=== PATIENT | male | born 1945 | race American Indian/Alaskan Native ===

== ENCOUNTER 2018-10-11 10:28 | Outpatient (CLI) | payer MEDICARE ==
[2018-10-11 11:10] LABS: Blood Urea Nitrogen 12 mg/dL (9-20)
--- NOTE | 2018-10-11 19:55 | Cat Scan Report ---
PROCEDURE: CT ABDOMEN PELVIS WO/W CON HISTORY: SEVERE ABD PAIN FINDINGS: Unenhanced CT of the abdomen and pelvis was performed followed by contrast-enhanced CT of t he abdomen and pelvis obtained following the intravenous administration of iodinated contrast. Delaye d phase excretory images were also generated. There is cardiomegaly. There is a trace pericardial effusion. There is gynecomastia. There is wall thickening of the distal esophagus consistent with esophagitis. There is a small hiatal hernia. ABDOMEN: There is enlargement of the lateral segment left lobe of liver and of the caudate lobe with atrophy o f the right lobe of liver consistent with cirrhotic change. The spleen is normal in size. The adrenal glands and pancreas are within normal limits. The gallbladder is mildly distended but is otherwise unremarkable. There is no renal or ureteral calculus. There are left renal cysts. Both kidneys excrete contrast nor liseth. The adrenal glands are within normal limits. There is aortic atherosclerotic change without aneurysma l dilation of the aorta. There is a short-segment dissection in the infrarenal abdominal aorta, axial image 130, sagittal image 96 extending for 1.1 cm along the long axis of the vessel. There is no small or large bowel obstruction. Pelvis: There is acute diverticulitis of the proximal sigmoid colon perienteric stranding. There is no divert icular abscess. There is a normal appendix. The prostate appears mildly large. The urinary bladder is within normal limits. 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 This document is electronically signed by Andrea Fry MD., October 11 2018 07:53:05 PM ET
== END 2018-10-11 10:29 | disposition home or self-care (01) ==
LOC: CT 10:28
PROVIDERS: ATTEND Internal Medicine
DX: K57.92 Diverticulitis of intestine, part unspecified, without perforation or abscess without bleeding (principal); N28.1 Cyst of kidney, acquired; I10 Essential (primary) hypertension; K21.9 Gastro-esophageal reflux disease without esophagitis; E03.9 Hypothyroidism, unspecified
CPT/HCPCS: 36415; 74178; 82565; 84520; Q9967

== ENCOUNTER 2019-01-07 10:54 | Day surgery (SDC) | payer MEDICARE ==
[2019-01-07] MEDS ORDERED: NACL 0.9% 500 ML 500 ML IV SCH (12:00)
[2019-01-07 12:03] LABS: Hematocrit 43.5 % (35.5-45.6); Hemoglobin 14.4 gm/dl (11.8-15.2); Mean Corpuscular HGB Conc 33 % (32-34); Mean Corpuscular Volume 86 fl (84-94); Platelet Count 266 K/mm3 (140-440); Red Blood Count 5.03 M/mm3 (3.65-5.03); Red Cell Distribution Width 17.7 % (13.2-15.2)
[2019-01-07 12:13] LABS: INR 0.92 (0.87-1.13); Partial Thromboplastin Time 24.7 Sec. (24.2-36.6)
[2019-01-07 12:24] LABS: BUN/Creatinine Ratio 12; Blood Urea Nitrogen 11 mg/dL (9-20); Calcium 9.6 mg/dL (8.4-10.2); Hemolysis Index 25
[2019-01-07] MEDS ORDERED: HEPARIN/NS 5000 UNIT/500ML(CATH LAB) 1,000 ML IR ONE (14:30)
[2019-01-07] MEDS ORDERED: HEPARIN 10,000 UNITS/10 ML ONE (14:30)
[2019-01-07] MEDS ORDERED: XYLOCAINE 2% INFILTRATI ONE (14:31)
[2019-01-07] MEDS ORDERED: NITROGLYCERIN SYRINGE 3 ML ONE (14:32)
[2019-01-07] MEDS: SUBLIMAZE ONE ×4 (14:50→16:19)
[2019-01-07] MEDS: VERSED ONE ×4 (14:50→16:19)
[2019-01-07] MEDS: HEPARIN 10,000 UNITS/10 ML ONE ×2 (15:08→16:07)
[2019-01-07] MEDS ORDERED: CALAN ONE (15:38)
[2019-01-07] MEDS ORDERED: NACL 0.9% 1000 ML 1,000 ML ONE (16:05)
--- NOTE | 2019-01-07 17:34 | Short Stay Summary ---
Short Stay Documentation Date of service: 01/07/19 Narrative H&P: See H&P - History H&P: obtained from office - Allergies and Medications Current Medications: Allergies No Known Allergies Allergy (Verified 12/05/14 14:15) Home Medications Medication Instructions Recorded Confirmed Last Taken Type HYDROcodone/ACETAMINOPHEN [Leroy 1 each PO Q6H PRN 12/05/14 01/07/19 01/06/19 History 7.5-325 mg TAB] Isosorbide Mononitrate [Isosorbide 30 mg PO QDAY 12/05/14 01/07/19 01/07/19 History Mononitrate ER] Levothyroxine [Synthroid] 25 mcg PO QAM 12/05/14 01/07/19 01/07/19 History Valacyclovir HCl [valACYclovir] 500 mg PO QDAY 12/05/14 01/07/19 01/07/19 History raNITIdine HCl [Ranitidine] 150 mg PO BID 12/05/14 01/07/19 01/07/19 History Clopidogrel Bisulfate [Plavix] 75 mg PO DAILY 01/07/15 01/07/19 01/07/19 History NIFEdipine XL [Procardia Xl] 60 mg PO QDAY 01/07/15 01/07/19 01/07/19 History Celecoxib [celeBREX] 200 mg PO DAILY 01/07/19 01/07/19 01/07/19 History Clopidogrel [Plavix] 75 mg PO DAILY 01/07/19 01/07/19 01/07/19 History Fluticasone [Flonase] 1 spray NS QDAY 01/07/19 01/07/19 01/07/19 History Linaclotide [Linzess] 145 mcg PO QDAY 01/07/19 01/07/19 12/24/18 History Active Medications Sodium Chloride (Nacl 0.9% 500 Ml) 500 mls @ 50 mls/hr IV DIRECT ARYAN Last Admin: 01/07/19 12:50 Dose: 50 mls/hr Documented by: - Brief post op/procedure progress note Date of procedure: 01/07/19 Pre-op diagnosis: PVD with Short Distance Claudication Post-op diagnosis: same Procedure: 1. Ultrasound-Guided Access Left Common Femoral Artery 2. Diagnostic Arteriogram with Right Lower Extremity Runoff (No Previous Films for Comparison) 3. Ultrasound Guided Access Right Posterior Tibial Artery 4. Atherectomy and with Angioplasty and Stenting of Right SFA and Popliteal Arteries with 2.4/3.4 JetStream Atherectomy Catheter, 5 x 250 IN.PACT Balloon in the Popliteal Artery, 6 x 250 IN.PACT Balloon in SFA and 7 x 60 EverFlex Self- Expanding Stent in the Proximal SFA 5. Angioplasty of the Right Posterior Tibial Artery with 3 x 220 Ken Balloon 6. Closure of Left Femoral Arteriotomy with ProGlide Closure Device 7. Radiologic Supervision with Interpretation Anesthesia: local, other (i.v. Sedation) Surgeon: MARIPOSA OSEGUERA Estimated blood loss: minimal Pathology: none Condition: stable - Disposition Condition at discharge: Good Disposition: DC-01 TO HOME OR SELFCARE Short Stay Discharge Plan Activity: other (No strenuous activity for 24 hours) Wound: other (remove dressing in 24 hours) Follow up with: MARIPOSA OSEGUERA MD [Staff Physician] - 14 Days Prescriptions: Aspirin EC 81 mg PO QDAY #90 tablet.
--- NOTE | 2019-01-07 17:52 | Operative Report ---
Operative Report Operative Report: Date of Procedure: 01/07/2019 Pre-operative Diagnosis: Peripheral Vascular Disease with Short Distance Claudi cation Post-operative Diagnosis: Same Procedure(s): 1. Ultrasound-Guided Access Left Common Femoral Artery 2. Diagnostic Arteriogram with Right Lower Extremity Runoff (No Previous Films for Comparison) 3. Ultrasound Guided Access Right Posterior Tibial Artery 4. Atherectomy and with Angioplasty and Stenting of Right SFA and Popliteal Arteries with 2.4/3.4 JetStream Atherectomy Catheter, 5 x 250 IN.PACT Drug- Coated Balloon in the Popliteal Artery, 6 x 250 IN.PACT Drug-Coated llocalBalloon in SFA and 7 x 60 EverFlex Self-Expanding Stent in the Proximal SFA 5. Angioplasty of the Right Posterior Tibial Artery with 3 x 220 Ken Balloon 6. Closure of Left Femoral Arteriotomy with ProGlide Closure Device 7. Radiologic Supervision with Interpretation Surgeon: Sriram Nicholson M.D. Tool Machinist: None Anesthesia: Local & i.v. Sedation EBL: Minimal Counts: Correct Complications: None Condition: Stable Specimen: None Indication: The patient is a 73 y.o. male who presented with complaints of short distance claudication. He had a history of prior intervention of his left leg. He had an ultrasound that revealed SFA and popliteal occlusive disease. He was offered a diagnostic Aortogram with possible intervention. He was given the risk, benefits, and alternative procedures and consented to the procedure. Angiographic Findings: The diagnostic aortogram revealed bilateral renal arteries were patent without any flow limiting stenosis. The aorta was patent and heavily calcified without any flow limiting stenosis. Bilateral common iliac arteries were patent and hea vily calcified with approximately 20% stenosis in each artery respectively. The right lower extremity runoff revealed the right external iliac and hypogastric were patent. The right common femoral artery and profunda were patent. The SFA was occluded with reconstitution of a short segment of the ability popliteal artery. There was then a short segment occlusion with reconstitution above the knee and the below-knee popliteal artery was patent. The patient had two-vessel runoff through the peroneal artery and posterior tibial artery. The anterior tibial artery occluded in the mid calf there was reconstitution of the dorsalis pedis through collateral branch from the peroneal artery at the ankle. After intervention the SFA was patent with flow approximately 20% residual stenosis and a short segment of the remainder of the artery was patent with less than 10% residual stenosis. The popliteal artery was patent with less than 15% residual stenosis. Both tibial arteries were patent without any flow limiting stenosis or evidence of embolic debris. Description of Procedure: The patient was brought to the General Foreman and placed in supine position. After a timeout was performed his left groin was prepped and draped in normal sterile fashion. Ultrasound was used to identify the left common femoral artery and confirmed patency. Once patency was confirmed overlying skin and soft tissue was anesthetized with lidocaine. A small stab incision was created with an 11 blade and a hemostat was used to bluntly dissect down to the anterior surface of the common femoral artery under ultrasound guidance. A micropuncture needle was used with ultrasound guidance to puncture the anterior wall of the left common femoral artery and then a 0.018 wire was advanced into the left external iliac artery under fluoroscopy. A micropunch sheath was then advanced over the wire and after removing the wire and inner dilator I advanced a 0.035 Bentson wire into the aorta and exchanged the micropuncture sheath for a 5 Kuwaiti sheath. I advanced the 5 Kuwaiti Omni flush catheter into the aorta and performed an aortogram. I then used the Mcdonald wire and advanced the Omni flush catheter over the bifurcation and performed a right lower extremity arteriogram with the previously described findings. As is the Mcdonald wire into the right profunda artery and exchanged the 5 Kuwaiti sheath for a 7 Kuwaiti 45 cm Destination sheath. At this point I systemically heparinized the patient with 5000 units of heparin IV. Advanced a 5 [place]i Navicross catheter and a 0.018 V18 wire into a stump of the origin of the SFA was able to advance the wire and catheter into the mid SFA however was unable to remain true lumen and advanced the catheter wire any further without entering the subintimal space so I decided to gain pedal access to attempt to cross the lesion. These ultrasound to identify the posterior tibial artery in the lower calf and confirm the patency. I anesthetized the skin and overlying soft tissue with lidocaine and then under ultrasound guidance punctured the posterior tibial artery. I advanced a 0.018 wire into the posterior tibial artery and then inserted the micropuncture sheath. I then advanced a 0.018 V18 wire. I removed the micropuncture sheath and then advanced a 0.018 [place] Blazer over the V 18 wire was able to advance the wire and catheter into the above-knee popliteal artery and traversed the occlusion and reentered the SFA at the level where my Navicross catheter remained. I was able to cannulate the Navicross catheter with the V18 wire and advanced the wire through the catheter and out of my Destination sheath. Once I did this I pulled the Navicross catheter out and removed the [place] Blazer. I then advanced and the cross catheter over the V18 wire and down into the below-knee popliteal artery. There was a significant amount of drag on the catheter secondary to the occlusive disease. I removed the V18 wire and advanced a 0.014 Spartacore wire into the posterior tibial artery and used a 2.4/3.4 JetKeelr atherectomy catheter to perform atherectomy of the SFA and popliteal artery. After performing atherectomy of the arteries I used a 5 x 200 balloon to perform angioplasty of the SFA and popliteal arteries. This resulted in patent arteries however there was approximately 40% residual stenosis of the popliteal artery and 50-60% residual stenosis of the SFA. I treated the popliteal artery with a 5 x 250 IN.PACT Drug-Coated Balloon and the SFA with a 6 x 250 IN.PACT Drug-Coated Balloon. The result was less than 15% residual stenosis in the popliteal artery. There was a short segment in the proximal SFA, involving the origin, with a spiral dissection of approximately 40 mm the remainder of the SFA was patent with less than 10% residual stenosis. I placed a 7 x 60 EverFlex Self-Expanding Stent and post-dilated it with a 7 x 60 [place] balloon. I then advanced a 3 x 220 Ken balloon into the posterior tibial artery and inflated it for 3 minutes to seal the access site. The final injection demonstrated no evidence of extravasation of contrast. I removed the Spartacore wire and pulled the sheath into the left external iliac artery and advance the Mcdonald wire into the aorta. A left anterior oblique injection was performed demonstrating the puncture site was in the common femoral artery so I used a ProGlide closure device to close my left femoral arteriotomy. The patient tolerated the procedure well. All sponge, needle, and instrument counts were correct. The patient was transported to the recovery area in stable condition.
[2019-01-07 18:18] VITALS: BP 167/88
== END 2019-01-07 18:50 | disposition home or self-care (01) ==
LOC: CATHLABREC 10:54
PROVIDERS: ATTEND Surgery Vascular Surgery
DX: I70.211 Atherosclerosis of native arteries of extremities with intermittent claudication, right leg (principal); I10 Essential (primary) hypertension; J43.9 Emphysema, unspecified; K21.9 Gastro-esophageal reflux disease without esophagitis; M19.90 Unspecified osteoarthritis, unspecified site; E03.9 Hypothyroidism, unspecified; Z98.890 Other specified postprocedural states; Z79.899 Other long term (current) drug therapy; Z79.82 Long term (current) use of aspirin; Z87.891 Personal history of nicotine dependence; Z98.41 Cataract extraction status, right eye; Z98.42 Cataract extraction status, left eye; Z95.1 Presence of aortocoronary bypass graft; Z79.01 Long term (current) use of anticoagulants; Z86.73 Personal history of transient ischemic attack (TIA), and cerebral infarction without residual deficits
CPT/HCPCS: 36415; 37227; 37228; 75710; 76937; 80048; 85027; 85610; 85730; 99156; 99157; C1724; C1725; C1760; C1769; C1876; C1887; J1644; J2250; J3010; J7030; J7040; 75716; Q9967

== ENCOUNTER 2020-12-11 12:51 | Outpatient (CLI) | payer MEDICARE ==
[2020-12-11 13:23] LABS: Bilirubin,Urine NEG (Negative); Blood,Urine NEG (Negative); Color,Urine Yellow (Yellow); Mucus,Urine FEW /HPF; Protein,Urine <15 mg/dL mg/dL (Negative); Urobilinogen,Urine < 2.0 mg/dL (<2.0); WBC,Urine < 1.0 /HPF (0.0-6.0)
[2020-12-11 13:24] LABS: Basophils % (Auto) 0.6 % (0.0-1.8); Eosinophils # (Auto) 0.1 K/mm3 (0.0-0.4); Eosinophils % (Auto) 0.8 % (0.0-4.3); Hematocrit 41.1 % (35.5-45.6); Hemoglobin 13.9 gm/dl (11.8-15.2); Lymphocytes # (Auto) 1.8 K/mm3 (1.2-5.4); Lymphocytes % (Auto) 23.4 % (13.4-35.0); Mean Corpuscular HGB Conc 34 % (32-34); Mean Corpuscular Volume 87 fl (84-94); Monocytes # (Auto) 0.6 K/mm3 (0.0-0.8); Monocytes % (Auto) 7.7 % (0.0-7.3); Platelet Count 306 K/mm3 (140-440); Red Blood Count 4.74 M/mm3 (3.65-5.03); Red Cell Distribution Width 17.4 % (13.2-15.2)
[2020-12-11 13:47] LABS: Alanine Aminotransferase 19 units/L (7-56); Albumin 4.3 g/dL (3.9-5); BUN/Creatinine Ratio 16; Blood Urea Nitrogen 14 mg/dL (9-20); Calcium 9.1 mg/dL (8.4-10.2); HDL Cholesterol 42 mg/dL (40-59); Hemolysis Index 3; LDL Cholesterol,Direct 101 mg/dL (50-130)
== END 2020-12-11 12:52 | disposition home or self-care (01) ==
LOC: LAB 12:51
PROVIDERS: ATTEND Internal Medicine
DX: Z13.1 Encounter for screening for diabetes mellitus (principal); Z13.220 Encounter for screening for lipoid disorders; E03.9 Hypothyroidism, unspecified; N39.0 Urinary tract infection, site not specified; E55.9 Vitamin D deficiency, unspecified
CPT/HCPCS: 36415; 80053; 80061; 81001; 83036; 84443; 85025

== ENCOUNTER 2021-01-21 06:55 | Observation (INO) | payer MEDICARE ==
[2021-01-21 09:23] LABS: Basophils % (Auto) 0.9 % (0.0-1.8); Eosinophils # (Auto) 0.2 K/mm3 (0.0-0.4); Hematocrit 41.4 % (35.5-45.6); Hemoglobin 13.9 gm/dl (11.8-15.2); Lymphocytes # (Auto) 1.4 K/mm3 (1.2-5.4); Lymphocytes % (Auto) 24.8 % (13.4-35.0); Mean Corpuscular HGB Conc 34 % (32-34); Mean Corpuscular Volume 86 fl (84-94); Monocytes # (Auto) 0.5 K/mm3 (0.0-0.8); Monocytes % (Auto) 9.4 % (0.0-7.3); Platelet Count 281 K/mm3 (140-440); Red Blood Count 4.83 M/mm3 (3.65-5.03); Red Cell Distribution Width 16.7 % (13.2-15.2)
[2021-01-21] MEDS ORDERED: ASPIRIN EC 325 MG TAB PO ONE (09:30)
[2021-01-21 09:36] LABS: BUN/Creatinine Ratio 17; Blood Urea Nitrogen 15 mg/dL (9-20); Calcium 9.6 mg/dL (8.4-10.2); Hemolysis Index 27
[2021-01-21] MEDS ORDERED: SODIUM CHLORIDE 0.9% 500 ML 500 ML IV SCH (10:00)
[2021-01-21 10:09] LABS: INR 0.91 (0.87-1.13)
[2021-01-21 10:10] LABS: Partial Thromboplastin Time 25.8 Sec. (24.2-36.6)
[2021-01-21] MEDS ORDERED: HEPARIN/NS 5000 UNIT/500ML 1,000 ML IR ONE (10:16)
[2021-01-21] MEDS: MIDAZOLAM 2 MG/2 ML INJ ONE ×3 (10:21→10:58)
[2021-01-21] MEDS: fentaNYL 100 MCG/2 ML INJ ONE ×3 (10:21→10:58)
[2021-01-21] MEDS: LIDOCAINE (2%) 20 MG/1 ML VIAL 20 ML MDV INFILTRATI ONE ×2 (10:22→10:58)
[2021-01-21] MEDS: NITROGLYCERIN SYRINGE 3 ML ONE ×3 (10:24→11:24)
[2021-01-21] MEDS: HEPARIN 10,000 UNITS/10 ML VIAL ONE ×4 (10:24→11:48)
[2021-01-21] MEDS: VERAPAMIL 5 MG/2 ML INJ ONE ×2 (10:24→10:58)
[2021-01-21] MEDS ORDERED: HEPARIN/NS 5000 UNIT/500ML 500 ML IR ONE (11:32)
[2021-01-21] MEDS ORDERED: NITROGLYCERIN SYRINGE 3 ML ONE (11:51)
[2021-01-21] MEDS ORDERED: TIROFIBAN/NS 12,500 MCG/250 ML BAG IV ONE (12:11)
[2021-01-21] MEDS ORDERED: CLOPIDOGREL 75 MG TAB ONE (12:16)
--- NOTE | 2021-01-21 13:53 | Event Note ---
Date: 01/21/21 Patient presented for an outpatient cardiac catheterization, indication was chest pain and abnormal thallium stress test. We found multivessel coronary artery disease with significant lesions in the mid LAD, mid obtuse marginal and mid right coronary arteries. Successful ad hoc coronary angioplasty and stenting was performed to the circumflex and LAD lesions. The right coronary lesion was a chronic total occlusion that is recommended for medical management. Patient is admitted for 23-hour post intervention observation, anticipate discharge tomorrow morning.
[2021-01-21] MEDS ORDERED: ONDANSETRON 4 MG/2 ML INJ IV PRN (13:54)
[2021-01-21] MEDS ORDERED: traMADol 50 MG TAB PO PRN (13:54)
[2021-01-21] MEDS ORDERED: ZOLPIDEM 5 MG TAB PO PRN (13:54)
[2021-01-21] MEDS ORDERED: ACETAMINOPHEN 325 MG TAB PO PRN (13:54)
[2021-01-21] MEDS ORDERED: TIROFIBAN/NS 12,500 MCG/250 ML BAG IV SCH (14:00)
[2021-01-21] MEDS ORDERED: SODIUM CHLORIDE 0.9% 1000 ML 1,000 ML IV SCH (14:00)
--- NOTE | 2021-01-21 14:29 | Electrocardiograph Report ---
[facility] Test Date: 2021-01-21 Test Time: 09:32:49 Pat Name: SHAILESH WEEKS Department: Room: Gender: M Supervisory It Specialist: KEVIN : 1945 Requested By: JOCELYN ALFONSO Order Number: [id number] Reading MD: Jocelyn Alfonso Measurements Intervals [place] Rate: 79 P: 71 OK: 152 QRS: 51 QRSD: 140 T: 4 QT: 402 QTc: 460 Interpretive Statements Sinus rhythm Right bundle branch block No previous ECG available for comparison Electronically Signed On 01-21-2021 14:28:32 EDT by Jocelyn Alfonso
--- NOTE | 2021-01-21 14:35 | Cardiac Catherization Report ---
DATE OF SERVICE: 01/21/2021 CARDIAC CATHETERIZATION AND CORONARY ANGIOPLASTY REPORT REASON FOR PROCEDURE: A 75-year-old man who presented for an outpatient cardiac catheterization. INDICATION: Chest pain and abnormal thallium stress test. PROCEDURE: 1. Left heart catheterization. 2. Selective left and right coronary angiography. 3. Left ventricular angiography. 4. Coronary angioplasty and stenting of the mid obtuse marginal branch of the circumflex artery. 5. Second vessel coronary angioplasty and stenting of the mid left anterior descending artery. 6. Sedation time start 10:21, end 12:00. DESCRIPTION OF PROCEDURE: The patient was prepped and draped in a sterile fashion after informed consent. The right radial cath site was prepped and draped after negative Philip's test. The right radial artery was entered using Seldinger technique followed by placement of a 6-Hebrew hydrophilic sheath. Routine radial cocktail was administered via the sheath. Selective left and right coronary angiography was performed using a 3.5 left Eris and 4 right Eris. Right Eris was used for left ventricular angiography. HEMODYNAMICS: Left ventricular end-diastolic pressure was 18. This was following coronary angiography. Ascending aortic pressure 150/74. There was no significant pressure gradient on pullback across the aortic valve. CORONARY ANGIOGRAPHY: There was mild ostial narrowing of the left main coronary artery. There was moderate diffuse calcification of the left coronary vessels. The left anterior descending artery contained a wedge-shaped, 75% stenosis of its mid segment. Otherwise, diffuse mild atherosclerosis was noted of this vessel and its diagonal branches. The mid obtuse marginal branch of the circumflex artery was a large vessel that contained a long irregular, 85% stenosis. The rest of the circumflex artery also contained mild diffuse luminal irregularities. The right coronary artery was a relatively small caliber, but dominant vessel. The mid segment of this vessel was completely occluded. This was a long segment of a chronic total occlusion. There was some faint reconstitution of the distal right coronary segments by bridging collaterals and left to right collaterals. Left ventricular systolic function was well preserved with ejection fraction 55-60%. CORONARY ANGIOPLASTY AND STENTING: After review of the angiograms, we recommended ad hoc, 2 vessel coronary stenting of the LAD and mid obtuse marginal arteries, followed by medical therapy for the chronic total occlusion of the relatively small caliber right coronary artery. We selected a 3.0 XB guiding catheter and advanced to the left coronary ostium. A 0.014 inch Actuarial Consultant 50 guidewire was first directed into the obtuse marginal artery, across the lesional segment. Following wire placement, we predilated this stenosis using a 3.0 mm balloon catheter. Following this, a 3.5 x 15 mm Resolute drug-eluting stent was deployed covering the entire lesional segment and inflated to optimal pressures. Following stenting, there was an excellent angiographic result, zero residual stenosis and MESERET 3 flow maintained in the mid obtuse marginal. We then turned our attention to the mid LAD. The Actuarial Consultant 50 wire was withdrawn from the circumflex and redirected into the LAD across the lesional segment of the mid vessel. In a primary stenting maneuver, we deployed a 3.0 x 12 mm Resolute drug-eluting stent and also inflated to optimal pressures. Following stenting of the mid LAD, there was an excellent angiographic result, zero residual stenosis at the treated site. MESERET 3 flow was maintained down the LAD. The wire was then retrieved, catheter retrieved, sheath removed. Hemostasis achieved using a TR band. The patient tolerated the procedure well and there were no complications. He was returned to the postprocedure unit in stable condition. CONCLUSIONS: 1. Cardiac catheterization revealed multivessel coronary artery disease. 2. Successful coronary angioplasty and stenting of the mid LAD. 3. Successful coronary angioplasty and stenting of the mid obtuse marginal branch of the circumflex artery. 4. 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 5. Well preserved left ventricular systolic function, ejection fraction 55-60%. NOTE: At the commencement of the interventional procedure, we administered 7000 units of heparin for andrew-procedure anticoagulation. Following this, I ordered an ACT for optimal monitoring of anticoagulation status. I was then informed by the staff that the ACT machine was nonfunctioning due to a "software glitch", therefore anticoagulation could not be monitored during the procedure. Due to inability to assess full anticoagulation with respect to maintaining an ACT of at least 300, I ordered adjunct therapy with Aggrastat to be administered, per protocol and continued for 18 hours post-intervention. TID: [id number] RECEIPT: [id number] BALDOMERO REID
[2021-01-21] MEDS ORDERED: NIFEdipine XL 60 MG TAB PO SCH (15:00)
[2021-01-21] MEDS: PANTOPRAZOLE 40 MG TAB PO SCH (16:08)
[2021-01-21] MEDS: NIFEdipine XL 60 MG TAB PO SCH (17:44)
[2021-01-21] MEDS: carvediloL 6.25 MG TAB PO SCH (21:16)
[2021-01-22 05:32] LABS: Basophils % (Auto) 0.7 % (0.0-1.8); Eosinophils # (Auto) 0.2 K/mm3 (0.0-0.4); Eosinophils % (Auto) 4.1 % (0.0-4.3); Hematocrit 39.2 % (35.5-45.6); Hemoglobin 13.3 gm/dl (11.8-15.2); Lymphocytes # (Auto) 1.7 K/mm3 (1.2-5.4); Lymphocytes % (Auto) 32.9 % (13.4-35.0); Mean Corpuscular HGB Conc 34 % (32-34); Mean Corpuscular Volume 88 fl (84-94); Monocytes # (Auto) 0.6 K/mm3 (0.0-0.8); Monocytes % (Auto) 11.7 % (0.0-7.3); Platelet Count 264 K/mm3 (140-440); Red Blood Count 4.48 M/mm3 (3.65-5.03); Red Cell Distribution Width 17.1 % (13.2-15.2)
[2021-01-22 05:49] LABS: BUN/Creatinine Ratio 18; Blood Urea Nitrogen 16 mg/dL (9-20); Calcium 9.3 mg/dL (8.4-10.2); Hemolysis Index 5
[2021-01-22] MEDS ORDERED: LEVOTHYROXINE 25 MCG TAB PO SCH (06:00)
[2021-01-22 06:08] LABS: Chol/HDL Ratio 3.81 %; HDL Cholesterol 37 mg/dL (40-59); LDL Cholesterol,Direct 84 mg/dL (50-130)
--- NOTE | 2021-01-22 08:15 | XRay Report ---
CHEST 1 VIEW INDICATION: post pci. COMPARISON: None FINDINGS: SUPPORT DEVICES: None. HEART: Within normal limits. LUNGS/PLEURA: No acute air space or interstitial disease. ADDITIONAL FINDINGS: None. IMPRESSION: 1. No acute findings. Signer Name: Craig Dong MD Signed: 01/22/2021 8:11 AM Workstation Name: [id number]
[2021-01-22] MEDS: carvediloL 6.25 MG TAB PO SCH (09:00)
[2021-01-22] MEDS: NIFEdipine XL 60 MG TAB PO SCH (09:00)
[2021-01-22] MEDS: PANTOPRAZOLE 40 MG TAB PO SCH (09:01)
[2021-01-22] MEDS ORDERED: CLOPIDOGREL 75 MG TAB PO SCH (10:00)
[2021-01-22] MEDS ORDERED: DOXAZOSIN 1 MG TAB PO SCH (10:00)
[2021-01-22] MEDS ORDERED: NON-FORMULARY EACH (Doxazosin Mesylate [Cardura] 2 MG Tablet) PO SCH (10:00)
[2021-01-22] MEDS ORDERED: valACYclovir 500 MG TAB PO SCH (10:00)
--- NOTE | 2021-01-22 10:30 | Short Stay Summary ---
Short Stay Documentation Date of service: 01/22/21 - History H&P: obtained from office - Allergies and Medications Current Medications: Allergies pregabalin [From Lyrica] Allergy (Verified 01/21/21 09:29) Rash Home Medications Medication Instructions Recorded Confirmed Last Taken Type Isosorbide Mononitrate [Isosorbide 30 mg PO QDAY 12/05/14 01/21/21 01/21/21 History Mononitrate ER] Levothyroxine [Synthroid] 25 mcg PO QAM 12/05/14 01/21/21 01/21/21 History Valacyclovir HCl [valACYclovir] 500 mg PO QDAY 12/05/14 01/21/21 01/21/21 History NIFEdipine XL [Procardia Xl] 60 mg PO QDAY 01/07/15 01/21/21 01/21/21 History Celecoxib [celeBREX] 200 mg PO DAILY 01/07/19 01/21/21 01/21/21 History Clopidogrel [Plavix] 75 mg PO DAILY 01/07/19 01/21/21 01/21/21 History Doxazosin Mesylate [Cardura] 2 mg PO DAILY 01/21/21 01/21/21 01/21/21 History Pantoprazole [Protonix] 40 mg PO QDAY 01/21/21 01/21/21 01/20/21 History carvediloL [Coreg] 6.25 mg PO BID 01/21/21 01/21/21 01/21/21 History Active Medications Acetaminophen (Acetaminophen 325 Mg Tab) 650 mg PO Q4H PRN PRN Reason: Pain MILD(1-3)/Fever >100.5/BRYAN Atorvastatin Calcium (Atorvastatin 40 Mg Tab) 40 mg PO QHS [facility] Last Admin: 01/21/21 21:16 Dose: 40 mg Documented by: Carvedilol (Carvedilol 6.25 Mg Tab) 6.25 mg PO BID [facility] Last Admin: 01/22/21 09:00 Dose: 6.25 mg Documented by: Clopidogrel Bisulfate (Clopidogrel 75 Mg Tab) 75 mg PO DAILY [facility] Last Admin: 01/22/21 09:05 Dose: 75 mg Documented by: Doxazosin Mesylate (Doxazosin 1 Mg Tab) 2 mg PO QDAY [facility] Last Admin: 01/22/21 09:01 Dose: 2 mg Documented by: Isosorbide Mononitrate (Isosorbide Mononitrate Er 30 Mg Tab) 30 mg PO QDAY [facility] Last Admin: 01/22/21 09:01 Dose: 30 mg Documented by: Levothyroxine Sodium (Levothyroxine 25 Mcg Tab) 25 mcg PO DAILY@0600 [facility] Last Admin: 01/22/21 05:07 Dose: 25 mcg Documented by: Nifedipine (Nifedipine Xl 60 Mg Tab) 60 mg PO QDAY [facility] Last Admin: 01/22/21 09:00 Dose: 60 mg Documented by: Ondansetron HCl (Ondansetron 4 Mg/2 Ml Inj) 4 mg IV Q8H PRN PRN Reason: N/V unrelieved by Reglan Pantoprazole Sodium (Pantoprazole 40 Mg Tab) 40 mg PO QDAY [facility] Last Admin: 01/22/21 09:01 Dose: 40 mg Documented by: Tramadol HCl (Tramadol 50 Mg Tab) 50 mg PO Q4H PRN PRN Reason: Pain, Mild (1-3) Valacyclovir HCl (Valacyclovir 500 Mg Tab) 500 mg PO QDAY [facility] Zolpidem Tartrate (Zolpidem 5 Mg Tab) 5 mg PO QHS PRN PRN Reason: Sleep - Physical exam General appearance: no acute distress HEENT: PERRLA Lungs: Clear to auscultation Heart: Regular rate, Normal S1, Normal S2 - Brief post op/procedure progress note Procedure: Patient presented for an outpatient cardiac catheterization, indication was chest pain and abnormal thallium stress test. We found multivessel coronary artery disease with significant lesions in the mid LAD, mid obtuse marginal and mid right coronary arteries. Successful ad hoc coronary angioplasty and stenting was performed to the circumflex and LAD lesions. The right coronary lesion was a chronic total occlusion that is recommended for medical management. Condition: stable - Hospital course Hospital course: Stable overnight observation. - Disposition Condition at discharge: Good Disposition: DC-01 TO HOME OR SELFCARE Short Stay Discharge Plan Activity: advance as tolerated Weight Bearing Status: Partial Weight Bearing Diet: low fat, low cholesterol, low salt Follow up with: PATRICIA SEBASTIAN MD [Primary Care Provider] - 7 Days DIANA GRAY MD [Staff Physician] - 7 Days
[2021-01-22 13:25] VITALS: BP 134/71
--- NOTE | 2021-01-22 18:14 | Electrocardiograph Report ---
[facility] Test Date: 2021-01-22 Test Time: 07:33:58 Pat Name: SHAILESH WEEKS Department: Room: A472 1 Gender: M Certified Personal Chef: KEVIN : 1945 Requested By: JOCELYN ALFONSO Order Number: [id number] Reading MD: Jocelyn Alfonso Measurements Intervals [place] Rate: 57 P: 60 [place]: 165 QRS: 41 QRSD: 139 T: 25 QT: 415 QTc: 405 Interpretive Statements Sinus bradycardia Right bundle branch block Compared to ECG 01/21/2021 12:52:41 No significant change Electronically Signed On 01-22-2021 18:14:07 EDT by Jocelyn Alfonso
== END 2021-01-22 15:20 | disposition home or self-care (01) ==
LOC: CATHLABREC 06:55 → 4A 13:53
PROVIDERS: ADMIT Internal Medicine Cardiovascular Disease; ATTEND Internal Medicine Cardiovascular Disease
DX: I25.10 Atherosclerotic heart disease of native coronary artery without angina pectoris (principal); Z98.61 Coronary angioplasty status
CPT/HCPCS: 36415; 71045; 80048; 80061; 84484; 85025; 85610; 85730; 93005; 93458; 96361; 96365; 96366; A9270; C1725; C1769; C1874; C1887; C1894; C9600; C9601; G0378; J1644; J2250; J3010; J3246; J7030; J7040; 92928; 92929; Q9967